=== PATIENT | male | born 1955 | race Caucasian/White ===

== ENCOUNTER 2022-05-24 10:00 | Inpatient (IN) | payer OTHER ==
[2022-05-24 11:06] LABS: Hemoglobin 13.9 g/dL (13.5-17.5); Mean Corpuscular HGB CONC 33.1 g/dL (32.0-36.0); Mean Corpuscular Hemoglobin 30.3 pg (27.0-33.0); Mean Corpuscular Volume 91.7 fl (81.2-95.1); Platelet Count 261 10x3/uL (150-450); RBC Distribution Width 13.2 % (11.5-14.5); Red Blood Cell (RBC) Count 4.58 10x6/uL (4.32-5.72); White Blood Cell (WBC) Count 9.9 10x3/uL (3.5-10.5)
[2022-05-24 11:24] LABS: Anion Gap 16 mmol/L (10-20); BUN (Urea Nitrogen) 17 mg/dL (8.4-25.7); Calc. Creatinine Clearance 0 mL/min (70-130); Calcium 8.9 mg/dL (7.8-10.44); Carbon Dioxide 22 mmol/L (23-31); Chloride 104 mmol/L (98-107); Estimated GFR 98; Glucose 287 mg/dL (80-115); Potassium 4.8 mmol/L (3.5-5.1); Sodium 137 mmol/L (136-145)
[2022-05-30] MEDS ORDERED: Lidocaine 1% MPF 2 ML VIAL ONE (06:17)
[2022-05-30] MEDS ORDERED: Albumin 5% 500 ML ONE (06:19)
[2022-05-30] MEDS ORDERED: Fentanyl 250 MCG/5 ML VIAL ONE ×2 (06:22→06:23)
[2022-05-30] MEDS ORDERED: Midazolam HCl 2 mg/2 ml Vial ONE ×2 (06:22)
[2022-05-30] MEDS ORDERED: Sevoflurane 250 ML INH ANEST BOTTLE ONE (06:22)
[2022-05-30] MEDS ORDERED: Heparin 10,000 UNITS/1 ML VIAL 30,000 UNITS in Sodium Chloride 0.9% 1,000 ML FS SCH (06:45)
[2022-05-30] MEDS ORDERED: Insulin Regular 300 UNITS/3 ML VIAL ONE (07:26)
[2022-05-30] MEDS ORDERED: CEFAZOLIN 2 GM VIAL ONE (07:49)
[2022-05-30] MEDS ORDERED: Sodium Chloride 0.9% 100 ML ONE (07:49)
[2022-05-30] MEDS ORDERED: Vancomycin 1 GM VIAL ONE (08:38)
[2022-05-30] MEDS ORDERED: Cardioplegic Soln 1,000 ML BAG ONE (08:38)
[2022-05-30] MEDS ORDERED: Lidocaine 2% PF 100 mg/5 ml Syringe ONE (08:38)
[2022-05-30] MEDS ORDERED: Heparin 30,000 units/30 ml VIAL ONE (08:38)
[2022-05-30] MEDS ORDERED: Protamine Sulfate 250 MG/25 ML VIAL ONE (08:38)
[2022-05-30] MEDS ORDERED: Papaverine 60 MG/2 ML VIAL ONE (08:38)
[2022-05-30] MEDS ORDERED: Potassium Chloride 60 MEQ/30 ML VIAL ONE (08:38)
[2022-05-30] MEDS ORDERED: Mannitol 12.5 GM/50 ML ONE (08:38)
[2022-05-30] MEDS ORDERED: Calcium Chloride 1 GM/10 ML Abboject SYRINGE ONE (08:38)
[2022-05-30] MEDS ORDERED: Rocuronium Bromide 10 MG/ML (10ML VIAL) ONE (08:38)
[2022-05-30] MEDS ORDERED: Heparin 5,000 UNITS/ML VIAL ONE (08:38)
[2022-05-30] MEDS ORDERED: Aminocaproic Acid 5 GM/20 ML VIAL ONE (08:38)
[2022-05-30] MEDS ORDERED: Magnesium 5 GM/10 ML VIAL ONE (08:38)
[2022-05-30] MEDS ORDERED: Thrombin 5000 UNITS/5 ML VIAL ONE (08:38)
[2022-05-30] MEDS ORDERED: Sodium Bicarb 50 MEQ/50 ML VIAL ONE (08:38)
[2022-05-30] MEDS ORDERED: Lidocaine 1% PF 5 ML VIAL ONE (08:38)
[2022-05-30] MEDS ORDERED: Phenylephrine 10 MG/ML VIAL ONE (08:38)
[2022-05-30] MEDS ORDERED: PROPOFOL 200 MG/20 ML VIAL ONE (08:38)
[2022-05-30] MEDS ORDERED: Hetastarch 6% 500 ML 500 ML IVPB PRN (12:24)
[2022-05-30] MEDS ORDERED: Mag-Al 1200 mg/1200 mg/30 ML UDCUP PO PRN (12:24)
[2022-05-30] MEDS ORDERED: fentaNYL 50 mcg/mL 1 mL Vial SLOW IVP PRN (12:24)
[2022-05-30] MEDS ORDERED: niCARdipine 25 MG in Sodium Chloride 0.9% 250 ML 250 ML IVPB PRN (12:24)
[2022-05-30] MEDS ORDERED: NOREPINEPHRINE 8 MG/250 ML-D5W 250 ML IVPB PRN (12:24)
[2022-05-30] MEDS ORDERED: Potassium Chloride 20 MEQ/100 ML PREMIX BAG IVPB PRN (12:24)
[2022-05-30] MEDS ORDERED: Acetaminophen 325 MG TAB PO PRN (12:24)
[2022-05-30] MEDS ORDERED: Post-Op Insulin Drip Protocol IVPB ONE (12:24)
[2022-05-30] MEDS ORDERED: Ondansetron PF 4 MG/2 ML Vial IVP PRN (12:24)
[2022-05-30] MEDS ORDERED: Morphine 2 MG/ML VIAL SLOW IVP PRN (12:24)
[2022-05-30] MEDS ORDERED: Bisacodyl 5 MG TAB PO PRN (12:24)
[2022-05-30] MEDS ORDERED: hydrALAZINE 20 MG/ML VIAL SLOW IVP PRN (12:24)
[2022-05-30] MEDS ORDERED: Ipratropium/Albuterol 3 ML NEB NEB PRN (12:24)
[2022-05-30] MEDS ORDERED: Bisacodyl 10 MG SUPP PR PRN (12:24)
[2022-05-30] MEDS ORDERED: Guaifenesin DM 100-10/5 ML UDCUP PO PRN (12:24)
[2022-05-30] MEDS ORDERED: Nitroglycerin 50 MG/250 ML BOT 250 ML IVPB PRN (12:24)
[2022-05-30] MEDS ORDERED: DOPamine 400 MG/D5W 250 ML 250 ML IVPB PRN (12:24)
[2022-05-30 12:25] LABS: Actual Bicarbonate (HCO3a) 20.3 mEq/L (22-28); Base Excess (BEa) -6.2 mEq/L (-2.0 to +3.0); CO2 Tension 44.7 mmHg (35.0-45.0); Calcium, Ionized (arterial) 1.14 mmol/L (1.12-1.30); Carboxyhemoglobin (COHb) 1.1 gm% (0.0-3.0); Hemoglobin (Hb) 11.2 g/dL (14.0-18.0); O2 Tension (PaO2), arterial 86.3 mmHg (> 80.0); Potassium - ABG Lab 4.37 mmol/L (3.70-5.30); pH, Arterial 7.276 (7.35-7.45)
[2022-05-30 12:26] LABS: ALV-art Gradient 282.625 mmHg (0-20); Puncture Site Arterial Line
[2022-05-30] MEDS: HUMULIN R 100 UNITS in Sodium Chloride 0.9% 100 ML IVPB SCH (12:27)
[2022-05-30] MEDS ORDERED: Dextrose 50% Abboject 50 ML SYRINGE SLOW IVP PRN (12:30)
[2022-05-30] MEDS ORDERED: Dextrose 5% in Water 1,000 ML IV PRN (12:30)
[2022-05-30 12:35] LABS: #Basophils 0.1 thou/uL (0.0-0.2); #Eosinphils 0.5 thou/uL (0.0-0.7); #Monocytes 1.6 thou/uL (0.11-0.59); %Basophils 0.4 % (0.0-1.0); %Eosinophils 2.6 % (0.0-10.0); %Lymphocytes 16.5 % (21.0-51.0); %Monocytes 8.7 % (0.0-10.0); %Neutrophils 71.8 % (42.0-75.0); Hemoglobin 11.3 g/dL (14.0-18.0); Mean Corpuscular Hemoglobin 32.9 pg (27.0-31.0); Mean Corpuscular Volume 96.7 fl (78.0-98.0); Mean Platelet Volume 7.7 fL (7.4-10.4); Platelet Count 206 10x3/uL (130-400); RBC Distribution Width 12.6 % (11.5-14.5); Red Blood Cell (RBC) Count 3.42 mill/uL (4.70-6.10); White Blood Cell (WBC) Count 18.1 10x3/uL (4.8-10.8)
[2022-05-30] MEDS: Ketorolac Tromethamine 30 MG/ML VIAL IVP SCH ×3 (12:40→23:01)
[2022-05-30] MEDS: Lactated Ringer's 1,000 ML IV SCH ×2 (12:40→22:57)
[2022-05-30 12:47] LABS: INR-International Normal Ratio 1.3
[2022-05-30] MEDS: fentaNYL 50 mcg/mL 1 mL Vial SLOW IVP PRN ×5 (12:54→22:55)
[2022-05-30 12:56] LABS: Anion Gap 11 mmol/L (10-20); BUN (Urea Nitrogen) 17 mg/dL (8.4-25.7); Calc. Creatinine Clearance 146 mL/min (70-130); Calcium 7.9 mg/dL (7.8-10.44); Carbon Dioxide 20 mmol/L (23-31); Chloride 111 mmol/L (98-107); Estimated GFR 99; Glucose 233 mg/dL (80-115); Potassium 4.4 mmol/L (3.5-5.1); Sodium 138 mmol/L (136-145)
[2022-05-30 13:16] VITALS: BMI 33.3
[2022-05-30 14:42] LABS: Actual Bicarbonate (HCO3a) 22.2 mEq/L (22-28); Base Excess (BEa) -3.5 mEq/L (-2.0 to +3.0); CO2 Tension 42.7 mmHg (35.0-45.0); Calcium, Ionized (arterial) 1.09 mmol/L (1.12-1.30); Carboxyhemoglobin (COHb) 1.1 gm% (0.0-3.0); Hemoglobin (Hb) 11.4 g/dL (14.0-18.0); O2 Tension (PaO2), arterial 104.5 mmHg (> 80.0); pH, Arterial 7.334 (7.35-7.45)
[2022-05-30 14:44] LABS: ALV-art Gradient 127.325 mmHg (0-20); Puncture Site Arterial Line
[2022-05-30] MEDS: CEFAZOLIN 2 GM in Sodium Chloride 0.9% 100 ML IVPB SCH ×2 (15:01→23:00)
[2022-05-30 18:23] LABS: Hemoglobin 11.4 g/dL (14.0-18.0)
[2022-05-30 18:29] LABS: Potassium 4.2 mmol/L (3.5-5.1)
[2022-05-30] MEDS: HYDROcodone/Acetaminophen 5/325 mg Tablet PO PRN (20:35)
[2022-05-30] MEDS: Atorvastatin Calcium 20 MG TAB PO SCH (20:36)
[2022-05-30] MEDS: Famotidine/PF 20 mg/2ml Vial SLOW IVP SCH (20:36)
[2022-05-31] MEDS: fentaNYL 50 mcg/mL 1 mL Vial SLOW IVP PRN ×3 (01:18→06:02)
[2022-05-31] MEDS: HUMULIN R 100 UNITS in Sodium Chloride 0.9% 100 ML IVPB SCH (02:39)
[2022-05-31] MEDS: HYDROcodone/Acetaminophen 5/325 mg Tablet PO PRN ×5 (02:44→20:35)
[2022-05-31 03:45] LABS: #Eosinphils 0.1 thou/uL (0.0-0.7); #Lymphocytes 1.7 thou/uL (1.20-3.40); #Monocytes 1.4 thou/uL (0.11-0.59); #Neutrophils 11.1 thou/uL (1.40-6.50); %Basophils 0.3 % (0.0-1.0); %Eosinophils 0.5 % (0.0-10.0); %Lymphocytes 11.5 % (21.0-51.0); %Neutrophils 77.7 % (42.0-75.0); Hemoglobin 9.4 g/dL (14.0-18.0); Mean Corpuscular Volume 97.4 fl (78.0-98.0); Mean Platelet Volume 7.6 fL (7.4-10.4); Platelet Count 225 10x3/uL (130-400); RBC Distribution Width 12.5 % (11.5-14.5); Red Blood Cell (RBC) Count 2.69 mill/uL (4.70-6.10); White Blood Cell (WBC) Count 14.3 10x3/uL (4.8-10.8)
[2022-05-31 04:04] LABS: Anion Gap 12 mmol/L (10-20); BUN (Urea Nitrogen) 13 mg/dL (8.4-25.7); Calc. Creatinine Clearance 201 mL/min (70-130); Calcium 7.9 mg/dL (7.8-10.44); Carbon Dioxide 23 mmol/L (23-31); Chloride 108 mmol/L (98-107); Estimated GFR 105; Glucose 130 mg/dL (80-115); Sodium 139 mmol/L (136-145)
[2022-05-31] MEDS: Ketorolac Tromethamine 30 MG/ML VIAL IVP SCH ×3 (05:10→17:09)
[2022-05-31] MEDS: CEFAZOLIN 2 GM in Sodium Chloride 0.9% 100 ML IVPB SCH (08:13)
[2022-05-31] MEDS: Magnesium 2 GM/50 ML(in water) 2 GM in Premix Bag 1 BAG IVPB SCH (08:14)
[2022-05-31] MEDS: Aspirin 325 MG TAB PO SCH (08:15)
[2022-05-31] MEDS: Famotidine/PF 20 mg/2ml Vial SLOW IVP SCH ×2 (08:17→20:37)
[2022-05-31] MEDS: Lactated Ringer's 1,000 ML IV SCH ×2 (09:00→18:26)
[2022-05-31] MEDS ORDERED: GLIPIZIDE PO SCH (09:00)
[2022-05-31] MEDS ORDERED: Insulin Glargine 30 UNITS/0.3 ML VIAL SC PRN (12:30)
[2022-05-31] MEDS: Polyethylene Glycol 3350 17 GM Packet PO SCH (18:10)
[2022-05-31] MEDS: Insulin Regular 300 UNITS/3 ML VIAL SC PRN ×2 (18:49→21:41)
[2022-05-31] MEDS: Atorvastatin Calcium 20 MG TAB PO SCH (20:37)
[2022-06-01] MEDS: Ketorolac Tromethamine 30 MG/ML VIAL IVP SCH ×4 (01:16→18:27)
[2022-06-01] MEDS: HYDROcodone/Acetaminophen 5/325 mg Tablet PO PRN ×4 (01:21→21:18)
[2022-06-01 04:16] LABS: #Eosinphils 0.2 thou/uL (0.0-0.7); #Lymphocytes 2.5 thou/uL (1.20-3.40); #Monocytes 1.6 thou/uL (0.11-0.59); %Basophils 0.2 % (0.0-1.0); %Eosinophils 1.5 % (0.0-10.0); %Lymphocytes 16.4 % (21.0-51.0); %Monocytes 10.2 % (0.0-10.0); %Neutrophils 71.7 % (42.0-75.0); Hemoglobin 9.7 g/dL (14.0-18.0); Mean Corpuscular HGB CONC 34.7 g/dL (32.0-36.0); Mean Corpuscular Hemoglobin 33.5 pg (27.0-31.0); Mean Corpuscular Volume 96.5 fl (78.0-98.0); Mean Platelet Volume 7.5 fL (7.4-10.4); Platelet Count 161 10x3/uL (130-400); RBC Distribution Width 12.3 % (11.5-14.5); Red Blood Cell (RBC) Count 2.88 mill/uL (4.70-6.10); White Blood Cell (WBC) Count 15.3 10x3/uL (4.8-10.8)
[2022-06-01 04:42] LABS: Anion Gap 13 mmol/L (10-20); BUN (Urea Nitrogen) 10 mg/dL (8.4-25.7); Calc. Creatinine Clearance 171 mL/min (70-130); Calcium 8.2 mg/dL (7.8-10.44); Carbon Dioxide 23 mmol/L (23-31); Chloride 103 mmol/L (98-107); Estimated GFR 101; Glucose 195 mg/dL (80-115); Potassium 4.1 mmol/L (3.5-5.1); Sodium 135 mmol/L (136-145)
[2022-06-01] MEDS: Insulin Regular 300 UNITS/3 ML VIAL SC PRN ×4 (06:32→21:46)
[2022-06-01] MEDS: Lactated Ringer's 1,000 ML IV SCH (07:31)
[2022-06-01] MEDS: Famotidine/PF 20 mg/2ml Vial SLOW IVP SCH (08:35)
[2022-06-01] MEDS: Magnesium 2 GM/50 ML(in water) 2 GM in Premix Bag 1 BAG IVPB SCH (08:35)
[2022-06-01] MEDS: Polyethylene Glycol 3350 17 GM Packet PO SCH (08:36)
[2022-06-01] MEDS: Aspirin 325 MG TAB PO SCH (08:36)
[2022-06-01] MEDS ORDERED: Nitroglycerin 0.4 MG TAB (25 Tab Bottle) SL PRN (09:11)
[2022-06-01] MEDS ORDERED: diphenhydrAMINE 25 MG CAP PO PRN (09:11)
[2022-06-01] MEDS ORDERED: Zolpidem Tartrate 5 MG TAB PO PRN (09:11)
[2022-06-01] MEDS ORDERED: metFORMIN 500 MG TAB PO SCH (09:11)
[2022-06-01] MEDS: Furosemide 40 MG TAB PO SCH (09:25)
[2022-06-01] MEDS: metFORMIN 500 MG TAB PO SCH ×2 (09:25→21:18)
[2022-06-01] MEDS: Famotidine 20 MG TAB PO SCH ×2 (09:27→21:18)
[2022-06-01] MEDS ORDERED: Dextrose 5% in Water 1,000 ML IV PRN (09:30)
[2022-06-01] MEDS ORDERED: HUMULIN R 100 UNITS in Sodium Chloride 0.9% 100 ML IVPB SCH (09:30)
[2022-06-01] MEDS ORDERED: Dextrose 50% Abboject 50 ML SYRINGE SLOW IVP PRN (09:30)
[2022-06-01] MEDS: Atorvastatin Calcium 20 MG TAB PO SCH (21:18)
[2022-06-02] MEDS: Ketorolac Tromethamine 30 MG/ML VIAL IVP SCH ×3 (00:55→12:01)
[2022-06-02] MEDS: Insulin Regular 300 UNITS/3 ML VIAL SC PRN ×4 (06:37→21:51)
[2022-06-02] MEDS: Polyethylene Glycol 3350 17 GM Packet PO SCH (07:53)
[2022-06-02] MEDS: Famotidine 20 MG TAB PO SCH ×2 (07:53→21:51)
[2022-06-02] MEDS: Furosemide 40 MG TAB PO SCH (07:53)
[2022-06-02] MEDS: Aspirin 325 MG TAB PO SCH (07:53)
[2022-06-02] MEDS: Potassium Chloride 10 MEQ TAB PO SCH (07:54)
[2022-06-02] MEDS: metFORMIN 500 MG TAB PO SCH ×2 (07:54→16:19)
[2022-06-02] MEDS ORDERED: Insulin Glargine 30 UNITS/0.3 ML VIAL SC PRN (09:20)
[2022-06-02] MEDS ORDERED: Metoprolol Tartrate 25 MG TAB PO SCH (21:00)
[2022-06-02] MEDS: Metoprolol Tartrate 25 MG TAB PO SCH (21:50)
[2022-06-02] MEDS: Atorvastatin Calcium 20 MG TAB PO SCH (21:51)
[2022-06-02] MEDS: HYDROcodone/Acetaminophen 5/325 mg Tablet PO PRN (21:55)
[2022-06-03] MEDS: Insulin Regular 300 UNITS/3 ML VIAL SC PRN ×2 (07:39→11:00)
[2022-06-03] MEDS: Aspirin 325 MG TAB PO SCH (08:42)
[2022-06-03] MEDS: metFORMIN 500 MG TAB PO SCH (08:42)
[2022-06-03] MEDS: Famotidine 20 MG TAB PO SCH (08:42)
[2022-06-03] MEDS: Potassium Chloride 10 MEQ TAB PO SCH (08:43)
[2022-06-03] MEDS: Furosemide 40 MG TAB PO SCH (08:43)
[2022-06-03] MEDS: Metoprolol Tartrate 25 MG TAB PO SCH (08:44)
[2022-06-03] MEDS: Polyethylene Glycol 3350 17 GM Packet PO SCH (08:46)
[2022-06-03 09:22] VITALS: TEMP 98.1
[2022-06-03 11:38] VITALS: BP 163/86
== END 2022-06-03 12:45 | disposition home or self-care (01) | DRG 236 ==
LOC: SURG A 05-30 05:59 → CCU 05-30 12:03 → 2NO 06-01 22:55
PROVIDERS: ADMIT Thoracic Surgery (Cardiothoracic Vascular Surgery); ATTEND Thoracic Surgery (Cardiothoracic Vascular Surgery)
PROC: 02100Z9 Bypass Coronary Artery, One Artery from Left Internal Mammary, Open Approach (ICD-10-PCS; principal; 2022-05-30)
PROC: 021109W Bypass Coronary Artery, Two Arteries from Aorta with Autologous Venous Tissue, Open Approach (ICD-10-PCS; 2022-05-30)
PROC: 06BQ4ZZ Excision of Left Saphenous Vein, Percutaneous Endoscopic Approach (ICD-10-PCS; 2022-05-30)
PROC: 5A1221Z Performance of Cardiac Output, Continuous (ICD-10-PCS; 2022-05-30)
PROC: 02L70ZK Occlusion of Left Atrial Appendage, Open Approach (ICD-10-PCS; 2022-05-30)
DX: I25.10 Atherosclerotic heart disease of native coronary artery without angina pectoris (principal); E11.9 Type 2 diabetes mellitus without complications; I10 Essential (primary) hypertension; Z96.642 Presence of left artificial hip joint; E78.2 Mixed hyperlipidemia; F17.290 Nicotine dependence, other tobacco product, uncomplicated; Z90.49 Acquired absence of other specified parts of digestive tract; Z79.84 Long term (current) use of oral hypoglycemic drugs; Z79.899 Other long term (current) drug therapy; Z79.82 Long term (current) use of aspirin; Z88.0 Allergy status to penicillin
CPT/HCPCS: 36416; 36430; 71045; 80048; 82805; 82947; 85025; 85027; 85610; 85730; 86850; 86900; 86901; 93005; 93010; 93798; 94002; 94150; C1713; C1751; C1776; J1642; J1644; J1815; J1885; J2001; J2150; J2250; J2370; J2405; J2440; J2704; J2720; J3010; J3370; J3475; J3480; J3490; J7120; P9045; S0017; S0028

== ENCOUNTER 2022-12-16 09:45 | Outpatient (CLI) | payer OTHER ==
[2022-12-16 11:33] LABS: Hematocrit 38.8 % (38.8-50.0); Hemoglobin 12.5 g/dL (13.5-17.5); Mean Corpuscular HGB CONC 32.2 g/dL (32.0-36.0); Mean Corpuscular Hemoglobin 30.8 pg (27.0-33.0); Mean Corpuscular Volume 95.6 fl (81.2-95.1); Platelet Count 288 10x3/uL (150-450); RBC Distribution Width 14.6 % (11.5-14.5); Red Blood Cell (RBC) Count 4.06 10x6/uL (4.32-5.72); White Blood Cell (WBC) Count 9.9 10x3/uL (3.5-10.5)
[2022-12-16 12:30] LABS: Anion Gap 17 mmol/L (10-20); BUN (Urea Nitrogen) 14 mg/dL (8.4-25.7); Calc. Creatinine Clearance 0 mL/min (70-130); Calcium 9.3 mg/dL (7.8-10.44); Carbon Dioxide 22 mmol/L (23-31); Chloride 107 mmol/L (98-107); Estimated GFR 96; Glucose 144 mg/dL (80-115); Potassium 4.9 mmol/L (3.5-5.1); Sodium 141 mmol/L (136-145)
== END 2022-12-16 09:46 | disposition home or self-care (01) ==
LOC: LABBT 09:45
PROVIDERS: ATTEND Thoracic Surgery (Cardiothoracic Vascular Surgery)
DX: Z01.812 Encounter for preprocedural laboratory examination (principal); I65.29 Occlusion and stenosis of unspecified carotid artery
CPT/HCPCS: 80048; 85027

== ENCOUNTER 2022-12-16 10:00 | Inpatient (IN) | payer OTHER ==
[2022-12-18] MEDS ORDERED: Protamine Sulfate 250 MG/25 ML VIAL ONE (06:34)
[2022-12-18] MEDS ORDERED: Heparin 5,000 UNITS/ML VIAL ONE (06:35)
[2022-12-18] MEDS ORDERED: Bupivacaine PF 0.5% 30 ML VIAL ONE (06:35)
[2022-12-18] MEDS ORDERED: EPINEPHrine 1 MG/ML VIAL ONE (06:35)
[2022-12-18] MEDS ORDERED: Protamine Sulfate 50 MG/5 ML VIAL ONE (06:36)
[2022-12-18] MEDS ORDERED: Lidocaine 1% MPF 2 ML VIAL ONE (06:47)
[2022-12-18] MEDS ORDERED: PHENYLEPHRINE-NS 100 MCG/ML 10 ML SYRINGE ONE (07:15)
[2022-12-18] MEDS ORDERED: PROPOFOL 200 MG/20 ML VIAL ONE (07:15)
[2022-12-18] MEDS ORDERED: NEOSTIGMINE 3 MG/3 ML SYR 3 MG/3 ML SYRINGE ONE (07:15)
[2022-12-18] MEDS ORDERED: Clindamycin/D5W 600 mg/50 ml Premix Bag ONE (07:15)
[2022-12-18] MEDS ORDERED: Rocuronium Bromide 10 MG/ML (10ML VIAL) ONE (07:15)
[2022-12-18] MEDS ORDERED: Glycopyrrolate 0.2 MG/ML 5 ML SYRINGE ONE (07:15)
[2022-12-18] MEDS ORDERED: Fentanyl 250 MCG/5 ML VIAL ONE (07:24)
[2022-12-18] MEDS ORDERED: fentaNYL 50 mcg/mL 1 mL Vial ONE ×2 (10:21→11:17)
[2022-12-18] MEDS ORDERED: Non-Formulary Medication 1 EACH PO PRN (10:29)
[2022-12-18] MEDS ORDERED: Ondansetron HCl/PF 4 MG/2 ML Vial IVP PRN (10:30)
[2022-12-18] MEDS ORDERED: Promethazine HCl 25 MG/ML VIAL IM/IV PRN (10:30)
[2022-12-18] MEDS ORDERED: fentaNYL 50 mcg/mL 1 mL Vial SLOW IVP PRN ×2 (12:36)
[2022-12-18] MEDS ORDERED: Ondansetron PF 4 MG/2 ML Vial IVP PRN (12:36)
[2022-12-18] MEDS ORDERED: Promethazine HCl 25 MG/ML VIAL IM PRN (12:36)
[2022-12-18] MEDS ORDERED: Acetaminophen 325 MG TAB PO PRN (12:36)
[2022-12-18] MEDS ORDERED: Insulin Regular 300 UNITS/3 ML VIAL SC PRN (12:36)
[2022-12-18] MEDS ORDERED: Sodium Chloride 0.9% 1,000 ML IV SCH (12:36)
[2022-12-18] MEDS ORDERED: Clindamycin/D5W 900 MG in Premix 1 BAG IVPB SCH (12:36)
[2022-12-18] MEDS ORDERED: Phenylephrine 40 MG in Sodium Chloride 0.9% 250 ML 250 ML IVPB PRN (12:36)
[2022-12-18] MEDS ORDERED: Ipratropium/Albuterol 3 ML NEB NEB PRN (12:36)
[2022-12-18] MEDS: HYDROcodone/Acetaminophen 5/325 mg Tablet PO PRN ×2 (13:50→21:40)
[2022-12-18] MEDS: niCARdipine 25 MG in Sodium Chloride 0.9% 250 ML 250 ML IVPB PRN ×2 (14:05→19:44)
[2022-12-18 14:12] VITALS: BMI 30.4
[2022-12-18] MEDS ORDERED: Amlodipine 5 MG TAB PO SCH ×2 (15:00→21:00)
[2022-12-18] MEDS ORDERED: FLU VACC QS2023(65UP)/MF59C/PF 60 MCG/0.5 ML SYRINGE IM ONE (15:00)
[2022-12-18] MEDS: Clindamycin/D5W 600 MG in Premix 1 BAG IVPB SCH ×2 (15:15→21:33)
[2022-12-18] MEDS ORDERED: glipiZIDE XL 5 mg ER.TAB PO SCH (17:00)
[2022-12-18] MEDS ORDERED: Lisinopril 10 MG TAB PO SCH (17:45)
[2022-12-18] MEDS: Metoprolol Tartrate 50 MG TAB PO SCH (20:34)
[2022-12-18 20:35] VITALS: BP 123/76
[2022-12-18] MEDS ORDERED: Simvastatin 5 MG TAB PO SCH (21:00)
[2022-12-19] MEDS: Clindamycin/D5W 600 MG in Premix 1 BAG IVPB SCH ×2 (03:10→08:03)
[2022-12-19] MEDS ORDERED: glipiZIDE XL 2.5 mg ER.TAB PO SCH (08:00)
[2022-12-19] MEDS: Metoprolol Tartrate 50 MG TAB PO SCH (08:04)
[2022-12-19 08:11] VITALS: TEMP 97.8
[2022-12-19] MEDS ORDERED: Empagliflozin 10 MG TAB PO SCH (09:00)
[2022-12-19] MEDS ORDERED: Aspirin Chewable 81 MG TAB PO SCH (09:00)
== END 2022-12-19 09:20 | disposition home or self-care (01) | DRG 39 ==
LOC: SURG A 12-18 05:59 → CCU 12-18 13:25
PROVIDERS: ADMIT Thoracic Surgery (Cardiothoracic Vascular Surgery); ATTEND Thoracic Surgery (Cardiothoracic Vascular Surgery)
PROC: 03CL0ZZ Extirpation of Matter from Left Internal Carotid Artery, Open Approach (ICD-10-PCS; principal; 2022-12-18)
PROC: 03UL0KZ Supplement Left Internal Carotid Artery with Nonautologous Tissue Substitute, Open Approach (ICD-10-PCS; 2022-12-18)
DX: I65.22 Occlusion and stenosis of left carotid artery (principal); I10 Essential (primary) hypertension; E78.5 Hyperlipidemia, unspecified; M19.90 Unspecified osteoarthritis, unspecified site; E11.9 Type 2 diabetes mellitus without complications; E66.9 Obesity, unspecified; I25.10 Atherosclerotic heart disease of native coronary artery without angina pectoris; Z96.642 Presence of left artificial hip joint; Z90.49 Acquired absence of other specified parts of digestive tract; Z88.0 Allergy status to penicillin; Z68.31 Body mass index [BMI] 31.0-31.9, adult; Z95.1 Presence of aortocoronary bypass graft
CPT/HCPCS: 36416; C1768; J0171; J1642; J1644; J2704; J2720; J3010; J3490; J7050; S0020